=== PATIENT | female | born 1945 | race Caucasian/White ===

== ENCOUNTER → 2024-09-29 11:32 | Outpatient (REF) | payer MEDICARE, SELFPAY | LOC: HWRAD 11:32 | PROVIDERS: ATTENDING PHYSICIAN Family Medicine | DX: M25.571 Pain in right ankle and joints of right foot (principal) | CPT/HCPCS: 73610 ==

== ENCOUNTER 2025-04-02 06:10 | Day surgery (SDC) | payer MEDICARE, SELFPAY | END 2025-04-02 08:37 | disposition home or self-care (01) | LOC: GI 06:10 | PROVIDERS: ATTENDING PHYSICIAN Specialist | DX: Z12.11 Encounter for screening for malignant neoplasm of colon (principal); D12.2 Benign neoplasm of ascending colon; D12.3 Benign neoplasm of transverse colon | CPT/HCPCS: 45385; 45380; 88305 ==